=== PATIENT | male | born 1975 | race Caucasian/White ===

== ENCOUNTER 2019-03-19 11:13 | Emergency (ER) | payer MEDICAID ==
[~2019-03-19] VITALS: Ht 177.8 cm; Wt 68.2 kg
[2019-03-19 11:16] VITALS: Ht 177.8 cm; Wt 68.2 kg
[2019-03-19 12:10] LABS: BASOPHILS 0.5 % (0-2); EOSINOPHILS 1.9 % (0-7); HEMATOCRIT 44.7 % (42.0-54.0); HEMOGLOBIN 15.8 g/dL (13.5-17.5); IMMATURE GRANULOCYTES 0.2 % (0-5); LYMPHOCYTES 41.3 % (15-50); MCH 33.2 pg (26.0-34.0); MCHC 35.3 g/dL (31.0-37.0); MCV 93.9 fL (80.0-100.0); MEAN PLATELET VOLUME 8.8 fL (7.4-10.4); MONOCYTES 6.8 % (2-11); NEUTROPHILS 49.3 % (40-80); PLATELET COUNT 174 10x3/uL (130-400); RBC 4.76 10x6/uL (4.20-6.10); RDW 12.9 % (11.5-14.5); WBC 4.1 10x3/uL (4.8-10.8)
[2019-03-19 12:24] LABS: ALBUMIN 4.1 g/dL (3.4-5.0); ALKALINE PHOSPHATASE 80 U/L (46-116); ALT (SGPT) 83 U/L (10-68); BILIRUBIN - TOTAL 0.41 mg/dL (0.2-1.3); CALC OSMOLALITY 276 mosm/kg (275-300); CALCIUM 8.7 mg/dL (8.5-10.1); CARBON DIOXIDE 29.9 mmol/L (21.0-32.0); CHLORIDE - SERUM 103 mmol/L (98-107); CREATININE - SERUM 0.9 mg/dL (0.6-1.3); GLUCOSE 91 mg/dL (74-106); POTASSIUM - SERUM 4.2 mmol/L (3.5-5.1); PROTEIN - SERUM 7.3 g/dL (6.4-8.2); SODIUM 139 mmol/L (136-145); UREA NITROGEN 9 mg/dL (7-18); eGFR NON AFRICAN AMERICAN > 90 mL/min (90-120)
[2019-03-19 14:16] VITALS: BP 130/90
== END 2019-03-19 14:17 | disposition home or self-care (01) ==
LOC: D.ER 11:13
PROVIDERS: Emergency Medicine
DX: R42 Dizziness and giddiness (principal); F10.129 Alcohol abuse with intoxication, unspecified